=== PATIENT | male | born 1995 | race Caucasian/White ===

== ENCOUNTER 2017-03-16 20:54 | Emergency (ER) | payer OTHER ==
[~2017-03-16] VITALS: Ht 182.9 cm; Wt 74.8 kg
[2017-03-16 20:55] VITALS: BP_SYST 144
--- NOTE | 2017-03-16 20:55 | NUR ---
Patient to ER bed 7 to gown for evaluation. Side rails up. Report given to Kathy MARIN.
--- NOTE | 2017-03-16 21:05 | NUR ---
Patient AOx4, ambulatory, presents to ER with complaint of left thumb pain after a basketball hurt his thumb. Patient states he is unable to move his thumb. Cap refill <2 secs on all fingers of right hand. No open areas noted. No other symptoms or complaints at this time.
--- NOTE | 2017-03-16 21:05 | NUR ---
ROSEMARIE MARTINEZ Kwaw at bedside for medical evaluation.
--- NOTE | 2017-03-16 21:05 | NUR ---
Note [email or web address] in EDM - 03/16/17 at 2204 by [email or web address] Patient Giovanny, ambulatory, presents to ER with complaint of right thumb pain after a basketball hurt his thumb. Patient states he is unable to move his thumb. Cap refill <2 secs on all fingers of right hand. No open areas noted. No other symptoms or complaints at this time.
[2017-03-16] MEDS ORDERED: IBUPROFEN 600 MG TABLET PO ONE (21:15)
[2017-03-16] MEDS ORDERED: LIDOCAINE 1% 10 MG/ML, 20 ML MDV IJ ONE (21:30)
--- NOTE | 2017-03-16 21:40 | NUR ---
No adverse reactions noted after medication administration. Will continue to monitor.
[2017-03-16 21:58] VITALS: BP_SYST 138
--- NOTE | 2017-03-16 21:58 | NUR ---
Patient given written and verbal discharge instructions and verbalizes understanding. ER MD discussed with patient the results and treatment provided. Patient in stable condition. ID arm band removed. Rx of Naprosyn given. Patient educated on pain management and to follow up with PMD. Pain Scale 2/10 tolerable to patient. Opportunity for questions provided and answered.
== END 2017-03-16 21:58 | disposition home or self-care (01) ==
LOC: SED 20:54
DX: S63.102A Unspecified subluxation of left thumb, initial encounter (principal); S66.212A Strain of extensor muscle, fascia and tendon of left thumb at wrist and hand level, initial encounter; Z88.0 Allergy status to penicillin; W21.05XA Struck by basketball, initial encounter; Y93.67 Activity, basketball; Y92.320 Baseball field as the place of occurrence of the external cause; Y99.8 Other external cause status
CPT/HCPCS: 26770; 73140; 99284; J2001

== ENCOUNTER 2017-05-18 22:32 | Emergency (ER) | payer OTHER ==
[~2017-05-18] VITALS: Ht 185.4 cm; Wt 74.8 kg
[2017-05-18 22:32] VITALS: BP_SYST 126
--- NOTE | 2017-05-18 23:09 | NUR ---
PT AMBUALTORY TO SENG FOR EVALUATION
--- NOTE | 2017-05-18 23:10 | NUR ---
Pt alert and oriented x4. Pt C/O cough, sore throat and body aches. Pain stated as 5/10. Denies any N/V/D. No signs of SOB or acute distress noted. VSS. Will continue to monitor.
--- NOTE | 2017-05-18 23:20 | NUR ---
ER MD WEBER AT BEDSIDE EXAMINING PATIENT.
[2017-05-18 23:51] VITALS: BP_SYST 124
--- NOTE | 2017-05-18 23:51 | NUR ---
Patient given written and verbal discharge instructions and verbalizes understanding. ER MD discussed with patient the care provided. Patient in stable condition. ID arm band removed. Rx of Promethazine HCL/Dextromethorphan Hydrobromide Syrup given. Patient educated on pain management and to follow up with PMD. Pain Scale 6/10. Opportunity for questions provided and answered.
== END 2017-05-18 23:51 | disposition home or self-care (01) ==
LOC: SED 22:32
DX: J06.9 Acute upper respiratory infection, unspecified (principal); R03.0 Elevated blood-pressure reading, without diagnosis of hypertension; Z88.0 Allergy status to penicillin
CPT/HCPCS: 36415; 86710; 99284